=== PATIENT | male | born 1965 | race Caucasian/White ===

== ENCOUNTER 2022-06-02 08:43 | Emergency (ER) | payer OTHER ==
[~2022-06-02] VITALS: Ht 165.1 cm; Wt 81.6 kg
[2022-06-02] MEDS ORDERED: GLIPIZIDE XL10 MG PO (08:55)
[2022-06-02] MEDS ORDERED: METFORMIN HCL1000 M2 PO (08:56)
[2022-06-02] MEDS ORDERED: HUMULIN R100 UNIT/1 SUBCUTANEO (08:56)
== END 2022-06-02 10:06 | disposition home or self-care (01) ==
LOC: ER 08:43
DX: L84 Corns and callosities (principal); E11.9 Type 2 diabetes mellitus without complications; Z79.4 Long term (current) use of insulin; Z79.84 Long term (current) use of oral hypoglycemic drugs; Z91.013 Allergy to seafood

== ENCOUNTER 2022-08-12 14:53 | Emergency (ER) | payer OTHER ==
[~2022-08-12] VITALS: Ht 165.1 cm; Wt 81.6 kg
[~2022-08-12 14:53] MED LIST: GLIPIZIDE XL10 MG PO; HUMULIN R100 UNIT/1 SUBCUTANEO; METFORMIN HCL1000 M2 PO
== END 2022-08-12 17:55 | disposition home or self-care (01) ==
LOC: ER 14:53
DX: S46.819A Strain of other muscles, fascia and tendons at shoulder and upper arm level, unspecified arm, initial encounter (principal); X58.XXXA Exposure to other specified factors, initial encounter; Y93.9 Activity, unspecified; Y92.9 Unspecified place or not applicable; Y99.9 Unspecified external cause status; M62.838 Other muscle spasm; E11.9 Type 2 diabetes mellitus without complications; Z79.4 Long term (current) use of insulin; Z79.84 Long term (current) use of oral hypoglycemic drugs; I10 Essential (primary) hypertension; Z91.013 Allergy to seafood

== ENCOUNTER 2023-04-30 11:35 | Emergency (ER) | payer OTHER ==
[~2023-04-30] VITALS: Ht 165.1 cm; Wt 68.0 kg
[2023-04-30] MEDS ORDERED: DICLOFENAC SODI75 MG PO (13:24)
[2023-04-30] MEDS ORDERED: NORFLEX100MG PO (13:24)
== END 2023-04-30 13:32 | disposition home or self-care (01) ==
LOC: ER 11:35
DX: M54.2 Cervicalgia (principal); Z91.013 Allergy to seafood; E11.9 Type 2 diabetes mellitus without complications; Z79.4 Long term (current) use of insulin; I10 Essential (primary) hypertension; M62.838 Other muscle spasm

== ENCOUNTER 2024-06-01 14:37 | Emergency (ER) | payer OTHER ==
[~2024-06-01] VITALS: Ht 165.1 cm; Wt 74.8 kg
[~2024-06-01 14:37] MED LIST changes: +DICLOFENAC SODI75 MG PO; +NORFLEX100MG PO
[2024-06-01] MEDS ORDERED: KETOROLAC TROMETHAMINE 60 MG VIAL IM ONE ×2 (16:25→16:30)
[2024-06-01] MEDS ORDERED: ORPHENADRINE CITRATE 30 MG/ML AMPUL ONE (16:25)
[2024-06-01] MEDS ORDERED: ORPHENADRINE CITRATE 30 MG/ML AMPUL IM ONE (16:30)
[2024-06-01] MEDS ORDERED: NORFLEX100MG PO (19:14)
[2024-06-01] MEDS ORDERED: KETO10TA2 PO (19:14)
== END 2024-06-01 19:54 | disposition home or self-care (01) ==
LOC: ER 14:38
DX: M62.838 Other muscle spasm (principal); M54.2 Cervicalgia; E11.9 Type 2 diabetes mellitus without complications; Z79.84 Long term (current) use of oral hypoglycemic drugs; Z91.013 Allergy to seafood

== ENCOUNTER 2024-10-24 13:39 | Inpatient (IN) | payer OTHER ==
[~2024-10-24] VITALS: Ht 165.1 cm; Wt 72.6 kg
[~2024-10-24 13:39] MED LIST changes: +KETO10TA2 PO
--- NOTE | 2024-10-24 13:57 | NUR ---
SE RECIBE PACIENTE ALERTA Y ORIENTADO X3 REFIERE VENIR POR ORDEN DE MEDICO DE CLINICA DE CURACION DE HERIDAD PARA ADMISION AL HOSPOTAL POR ULCERA EN EL [facility].
--- NOTE | 2024-10-24 14:04 | NUR ---
SE CATHIE DXT A PACIENTE POR HX DE DIABTES Y PROTOCOLO DXT ES DE 439MG/DL, PACIENTE REFIERE NO HABERSRE TOMADO MASON DOSIS DE METFORMIN, NI INSULINA DE ESTA MANANA.
[2024-10-24] MEDS ORDERED: INSULIN REGULAR, HUMAN 1,000 UNIT/10 ML UNITS SUBCUTANEO ONE (14:45)
[2024-10-24] MEDS ORDERED: 0.9 % SODIUM CHLORIDE 1,000 ML IV SCH ×2 (14:45→17:30)
[2024-10-24] MEDS ORDERED: VANCOMYCIN HCL 1,000 MG VIAL IV ONE (14:45)
--- NOTE | 2024-10-24 15:20 | NUR ---
KIRK ORIENTA A PTE SOBRE TX MEDICO ORDENADO POR . REALIZA CATHIE DE MUESTRAS DE LAB DANNIE ORDEN MEDICA Y BAJO MEDIDAS ASEPTICAS. REALIZA CATHIE MUESTRAS DE CULTIVO Y SE ENVIAN A LABORATORIO. SE NOTIFICA ESTUDIO ORDENADO.
[2024-10-24 15:24] LABS: HEMATOCRIT 43.5 % (39.0-48.0); HEMOGLOBIN 14.9 g/dL (13-16.00); MEAN CELL VOLUME 93.2 fL (80.0-100.00); MEAN CORPUSCULAR HGB CONC 34.3 g/dl (32.0-36.0); PLATELET COUNT 348 K/uL (150-450); RED BLOOD COUNT 4.67 M/uL (4.00-6.00); RED CELL DISTRIBUTION WIDTH 13.3 % (11.5-14.5)
[2024-10-24 15:35] LABS: ERYTHROCYTE SEDIMENTATION RATE 59 mm/hr
[2024-10-24 16:23] LABS: ALBUMIN 2.9 gm/dL (3.4-5.0); BILIRUBIN TOTAL 0.39 mg/dL (0.3-1.2); C-REACTIVE PROTEIN 2.15 MG/DL (0.00-0.29); CALCIUM 9.6 mg/dL (8.5-10.1); CREATININE SERUM 0.79 mg/dL (0.70-1.30); GFR 100.05; GLOBULINA 4.8 G/DL (2.4-3.5); POTASSIUM 4.56 mEq/L (3.5-5.1); TOTAL PROTEIN 7.7 gm/dL (6.4-8.2)
[2024-10-24] MEDS ORDERED: ACETAMINOPHEN 500 MG GEL..CAP PO PRN (17:30)
[2024-10-24] MEDS ORDERED: CEFEPIME HCL 2,000 MG in 0.9 % SODIUM CHLORIDE 100 ML IV SCH (17:30)
[2024-10-24 18:11] VITALS: BP 164/92; O2SAT 99
[2024-10-24 22:35] VITALS: BP 153/83; O2SAT 96
[2024-10-25 00:10] VITALS: BP 124/77; O2SAT 98
[2024-10-25 07:13] LABS: PROTHROMBIN TIME 10.9 SECONDS (9.0-11.5)
[2024-10-25 08:00] VITALS: BP 159/93; O2SAT 95
[2024-10-25] MEDS ORDERED: LACTOBACILLUS ACIDOPHILUS 1 CAP CAP PO SCH (09:00)
[2024-10-25] MEDS ORDERED: VANCOMYCIN HCL 1,000 MG VIAL IV SCH (09:00)
[2024-10-25] MEDS ORDERED: FAMOTIDINE/PF 20 MG in 0.9 % SODIUM CHLORIDE 8 ML IV PUSH SCH (09:00)
[2024-10-25] MEDS ORDERED: ENOXAPARIN SODIUM 40 MG/0.4 ML SYRINGE SUBCUTANEO SCH (09:00)
[2024-10-25 16:00] VITALS: BP 144/80; O2SAT 97
[2024-10-25] MEDS ORDERED: INSULIN LISPRO 1,000 UNIT/10 ML UNITS SUBCUTANEO PRN (19:15)
[2024-10-25] MEDS ORDERED: DEXTROSE 50 % IN WATER 0.5 G/ML DISP.SYRIN IV PRN (19:15)
[2024-10-26 00:38] VITALS: BP 140/83; O2SAT 97
[2024-10-26 07:01] LABS: HEMATOCRIT 40.9 % (39.0-48.0); MEAN CELL VOLUME 93.4 fL (80.0-100.00); MEAN CORPUSCULAR HEMOGLOBIN 31.9 pg (27.00-32.0); MEAN CORPUSCULAR HGB CONC 34.2 g/dl (32.0-36.0); PLATELET COUNT 363 K/uL (150-450); RED BLOOD COUNT 4.37 M/uL (4.00-6.00); RED CELL DISTRIBUTION WIDTH 13.3 % (11.5-14.5)
[2024-10-26 07:45] LABS: ALBUMIN 2.7 gm/dL (3.4-5.0); BILIRUBIN TOTAL 0.46 mg/dL (0.3-1.2); CALCIUM 9.3 mg/dL (8.5-10.1); CREATININE SERUM 0.63 mg/dL (0.70-1.30); GFR 129.91; GLOBULINA 3.8 G/DL (2.4-3.5); MAGNESIUM 1.6 mg/dL (1.8-2.4); PHOSPHOROUS 3.3 mg/dL (2.5-4.9); POTASSIUM 4.22 mEq/L (3.5-5.1); TOTAL PROTEIN 6.5 gm/dL (6.4-8.2)
[2024-10-26 07:48] LABS: C-REACTIVE PROTEIN 1.19 MG/DL (0.00-0.29)
[2024-10-26 07:56] VITALS: BP 126/79; O2SAT 95
[2024-10-26 14:10] LABS: PROSTATIC SPECIFIC ANTIGEN 0.554 NG/ML (0.010-4.00); TSH 0.746 uIU/mL (0.358-3.74)
[2024-10-26 16:00] VITALS: BP 140/84; O2SAT 96
[2024-10-26 17:39] VITALS: BP 154/77; O2SAT 98
[2024-10-27] VITALS: BP 147/79; O2SAT 97
[2024-10-27 08:00] VITALS: BP 125/79; O2SAT 96
[2024-10-27] MEDS ORDERED: CEFAZOLIN SODIUM 2,000 MG in DEXTROSE 5 % IN WATER 100 ML IV SCH (09:00)
[2024-10-27 16:00] VITALS: BP 154/85; O2SAT 95
[2024-10-28 00:59] VITALS: BP 141/79; O2SAT 96
[2024-10-28 08:53] VITALS: BP 155/87; O2SAT 97
[2024-10-28 15:33] VITALS: BP 157/84; O2SAT 96
[2024-10-29 01:05] VITALS: BP 129/72; O2SAT 95
[2024-10-29 07:44] LABS: HEMATOCRIT 39.6 % (39.0-48.0); HEMOGLOBIN 13.9 g/dL (13-16.00); MEAN CORPUSCULAR HEMOGLOBIN 32.2 pg (27.00-32.0); PLATELET COUNT 355 K/uL (150-450); RED BLOOD COUNT 4.31 M/uL (4.00-6.00); RED CELL DISTRIBUTION WIDTH 13.3 % (11.5-14.5)
[2024-10-29 07:51] LABS: ALBUMIN 2.8 gm/dL (3.4-5.0); BILIRUBIN TOTAL 0.27 mg/dL (0.3-1.2); CALCIUM 9.3 mg/dL (8.5-10.1); CREATININE SERUM 0.62 mg/dL (0.70-1.30); GFR 132.33; GLOBULINA 3.9 G/DL (2.4-3.5); POTASSIUM 4.33 mEq/L (3.5-5.1); TOTAL PROTEIN 6.7 gm/dL (6.4-8.2)
[2024-10-29 08:29] VITALS: BP 138/76; O2SAT 98
[2024-10-29 16:27] VITALS: BP 150/83; O2SAT 93
[2024-10-30 00:08] VITALS: BP 147/80; O2SAT 95
[2024-10-30 08:00] VITALS: BP 148/86; O2SAT 97
[2024-10-30] MEDS ORDERED: LOSARTAN POTASSIUM 25 MG TABLET PO SCH (09:00)
[2024-10-30] MEDS ORDERED: SODIUM CHLORIDE 0.45 % 1,000 ML IV SCH (09:45)
[2024-10-30] MEDS ORDERED: RIVAROXABAN 10 MG TAB PO NR (11:00)
[2024-10-30 16:00] VITALS: BP 150/83; O2SAT 98
[2024-10-30] MEDS ORDERED: FAMOtidine 20 MG TABLET PO SCH (21:00)
[2024-10-31 00:14] VITALS: BP 137/79; O2SAT 100
[2024-10-31 08:00] VITALS: BP 139/75; O2SAT 97
[2024-10-31] MEDS ORDERED: LOSARTAN POTASSIUM 50 MG TABLET PO SCH (09:00)
[2024-10-31] MEDS ORDERED: RIVAROXABAN 10 MG TAB PO SCH (09:00)
[2024-10-31] MEDS ORDERED: XARELTO10 MG PO (12:39)
[2024-10-31] MEDS ORDERED: INTESTINEX680 M1 PO (12:40)
[2024-10-31] MEDS ORDERED: FAMOTIDINE20 MG PO (12:40)
[2024-10-31] MEDS ORDERED: METFORMIN HCL1000 M2 PO (12:40)
[2024-10-31] MEDS ORDERED: COZAAR50 MG PO (12:40)
[2024-10-31] MEDS ORDERED: HUMULIN R100 UNIT/1 SUBCUTANEO (12:41)
[2024-10-31] MEDS ORDERED: DUI500 PO (12:42)
== END 2024-10-31 16:54 | disposition home or self-care (01) | DRG 603 ==
LOC: ER 13:41 → SEC-K 18:24 → MEDI 18:45 → SURG 22:04
PROVIDERS: General Practice; Internal Medicine; Internal Medicine Infectious Disease; ADMIT Internal Medicine; ATTEND Internal Medicine
PROC: B54DZZZ Ultrasonography of Bilateral Lower Extremity Veins (ICD-10-PCS; principal; 2024-10-24)
PROC: B53CZZZ Magnetic Resonance Imaging (MRI) of Left Lower Extremity Veins (ICD-10-PCS; 2024-10-26)
DX: L03.116 Cellulitis of left lower limb (principal); I87.2 Venous insufficiency (chronic) (peripheral); L08.9 Local infection of the skin and subcutaneous tissue, unspecified; B95.61 Methicillin susceptible Staphylococcus aureus infection as the cause of diseases classified elsewhere; L97.529 Non-pressure chronic ulcer of other part of left foot with unspecified severity
CPT/HCPCS: 73725

== ENCOUNTER 2024-12-06 07:12 | Emergency (ER) | payer OTHER ==
[~2024-12-06] VITALS: Ht 165.1 cm; Wt 72.6 kg
[~2024-12-06 07:12] MED LIST changes: +COZAAR50 MG PO; +DUI500 PO; +FAMOTIDINE20 MG PO; +INTESTINEX680 M1 PO; +XARELTO10 MG PO
[2024-12-06] MEDS ORDERED: LOSARTAN POTASS50 MG (07:19)
[2024-12-06 07:21] VITALS: BP 160/80; O2SAT 98
== END 2024-12-06 08:45 | disposition home or self-care (01) ==
LOC: ER 07:15
DX: H53.9 Unspecified visual disturbance (principal); Z91.013 Allergy to seafood

== ENCOUNTER 2025-07-27 09:54 | Inpatient (IN) | payer OTHER ==
[~2025-07-27] VITALS: Ht 165.1 cm; Wt 78.9 kg
[~2025-07-27 09:54] MED LIST changes: +LOSARTAN POTASS50 MG
--- NOTE | 2025-07-27 10:32 | NUR ---
PTE CON REFERIDO DEL DR,LOEZ BRIDGES POR CELULITIS EN EL PIES DERECHJO Y ULCERA EN LOS DOS PIES. PTE PARA MANEJO DE ULCERRA Y PARA PROCESO DE ADMICION.SE LE CATHIE S/V Y SE UBICA EN FERNANDO.
--- NOTE | 2025-07-27 10:59 | NUR ---
SE ORIENTA A PACIENTE SOBRE TX MEDICO, REFIERE ENTENDER. SE REALIZAN MUESTRAS DE LABORATORIO BAJO MEDIDAS ASEPTICAS. SE ADMINISTRA IV'S DANNIE ORDEN MEDICA. SE COORDINA VENOUS DUPLEX Y ARTERIAL DUPLEX. PACIENTE MANEJADO POR . PENDIENTE RE-EVALUACION MEDICA.
[2025-07-27] MEDS ORDERED: 0.9 % SODIUM CHLORIDE 1,000 ML IV SCH ×2 (11:00→17:30)
[2025-07-27 11:41] LABS: BASO % 0.3 % (0.1-1.2); EOS # 0.01 (0.04-0.54); EOS % 0.1 % (0.7-7.0); LYMPH # 1.27 (1.18-3.74); LYMPH % 8.6 % (19.3-53.1); MEAN PLATELET VOLUME 10.80 fl (9.4-12.4); MONO # 1.05 (0.24-0.82); MONO % 7.1 % (4.7-12.5); NEUT # 12.23 (1.56-6.13); NEUT % 83.4 % (34.0-71.1); RED CELL DISTRIBUTION WIDTH 12.0 % (11.6-14.4)
[2025-07-27 11:51] LABS: ERYTHROCYTE SEDIMENTATION RATE 72 mm/hr (0-20)
[2025-07-27 12:50] LABS: ALT/SGPT 25.0 U/L (12-78); AST/SGOT 12.0 U/L (15-37); BILIRUBIN TOTAL 1.32 mg/dL (0.3-1.2); BUN CREA RATIO 15.0 (7.0-25.0); CREATININE SERUM 0.91 mg/dL (0.70-1.30); GFR 84.7; GLOBULINA 5.4 G/DL (2.4-3.5)
[2025-07-27 12:52] LABS: OSMOLALITY SERUM 280.0 MOSM/KG (275-295)
[2025-07-27 12:53] LABS: GLUCOSE FASTING 328.0 mg/dL (65-100)
[2025-07-27 13:04] LABS: URINE APPEARANCE Clear; URINE BILIRRUBIN Small (NEGATIVE); URINE BLOOD Negative; URINE COLOR Dark Yellow; URINE KETONE 15 (NEGATIVE); URINE LEUKOCYTE Trace; URINE NITRATE Negative; URINE UROBILINOGEN 1.0 E.U./dl
[2025-07-27 13:09] LABS: URINE BACTERIA 21.5 uL (0.0-1933); URINE CAST 5.27 uL (0.0-1.40); URINE EPITHELIAL CELLS 11.3 uL (0.0-38.8); URINE RBC 16.5 uL (0.0-20.8); URINE WBC 3.5 uL (0.0-23.2)
[2025-07-27] MEDS ORDERED: PIPERACILLIN/TAZOBACTAM SODIUM 3.375 GM in 0.9 % SODIUM CHLORIDE 100 ML IV SCH (13:18)
[2025-07-27 13:41] LABS: TYPE CELLS RENAL TUBULAR; URINE GLUCOSE >=1000 MG/DL (NEGATIVE); URINE PROTEIN 100 (NEGATIVE)
[2025-07-27] MEDS ORDERED: VANCOMYCIN HCL 1,000 MG VIAL IV SCH (17:26)
[2025-07-27] MEDS ORDERED: ENOXAPARIN SODIUM 40 MG/0.4 ML SYRINGE SUBCUTANEO SCH (17:28)
[2025-07-27] MEDS ORDERED: INSULIN LISPRO 1,000 UNIT/10 ML UNITS SUBCUTANEO PRN (17:30)
[2025-07-27] MEDS ORDERED: DEXTROSE 50 % IN WATER 0.5 G/ML VIAL IV PRN (17:30)
[2025-07-27] MEDS ORDERED: ACETAMINOPHEN 325 MG TABLET PO PRN (17:30)
[2025-07-27] MEDS ORDERED: GABAPENTIN 300 MG CAPSULE PO SCH (17:35)
[2025-07-27] MEDS ORDERED: VANCOMYCIN HCL 5 MG/ML REDILUIDO IV SCH ×2 (19:00)
[2025-07-27 19:19] LABS: INR 1.05
[2025-07-27 22:58] VITALS: BP 85/41
[2025-07-28 02:15] VITALS: BP 117/74; O2SAT 95
[2025-07-28 09:42] VITALS: BP 123/71
[2025-07-28 18:20] VITALS: BP 153/81; O2SAT 100
[2025-07-29 02:05] VITALS: BP 144/80; O2SAT 96
[2025-07-29 08:05] VITALS: BP 126/75
[2025-07-29] MEDS ORDERED: LACTOBACILLUS ACIDOPHILUS 1 CAP CAP PO SCH (17:00)
[2025-07-29 18:47] VITALS: BP 156/85; O2SAT 98
[2025-07-29] MEDS ORDERED: LINEZOLID IN DEXTROSE 5% 300 ML IV SCH (21:00)
[2025-07-30 02:07] VITALS: BP 125/79; O2SAT 95
[2025-07-30 08:00] VITALS: BP 120/80
[2025-07-30] MEDS ORDERED: CHLORHEXIDINE GLUCONATE 240 ML BOTTLE TOP SCH (09:00)
[2025-07-30 18:53] VITALS: BP 147/82
[2025-07-31 02:14] VITALS: BP 110/65; O2SAT 96
[2025-07-31 08:28] VITALS: BP 112/71; O2SAT 96
[2025-07-31 16:15] VITALS: BP 131/75; O2SAT 98
[2025-07-31] MEDS ORDERED: LINEZOLID 600 MG TABLET PO SCH (21:00)
[2025-08-01 03:08] VITALS: BP 139/87; O2SAT 94
[2025-08-01 09:34] VITALS: BP 133/80
== END 2025-08-01 14:11 | disposition home or self-care (01) | DRG 593 ==
LOC: ER 09:57 → MEDJ 17:55
PROVIDERS: General Practice; ADMIT Student in an Organized Health Care Education/Training Program; ATTEND Student in an Organized Health Care Education/Training Program
PROC: B54DZZZ Ultrasonography of Bilateral Lower Extremity Veins (ICD-10-PCS; principal; 2025-07-27)
PROC: BQ3LZZZ Magnetic Resonance Imaging (MRI) of Right Foot (ICD-10-PCS; 2025-07-29)
PROC: BQ3LYZZ Magnetic Resonance Imaging (MRI) of Right Foot using Other Contrast (ICD-10-PCS; 2025-07-29)
DX: L97.519 Non-pressure chronic ulcer of other part of right foot with unspecified severity (principal); L03.116 Cellulitis of left lower limb; H53.9 Unspecified visual disturbance; Z91.013 Allergy to seafood; L97.529 Non-pressure chronic ulcer of other part of left foot with unspecified severity; L84 Corns and callosities; B95.61 Methicillin susceptible Staphylococcus aureus infection as the cause of diseases classified elsewhere
CPT/HCPCS: 73725

== ENCOUNTER 2025-08-28 08:51 | Inpatient (IN) | payer OTHER ==
[~2025-08-28] VITALS: Ht 165.1 cm; Wt 72.6 kg
[2025-08-28] MEDS ORDERED: FAMOTIDINE/PF 20 MG/2 ML VIAL IV STA ×2 (09:35→12:12)
[2025-08-28] MEDS ORDERED: 0.9 % SODIUM CHLORIDE 1,000 ML IV STA ×3 (09:35→12:12)
[2025-08-28] MEDS ORDERED: CEFTRIAXONE SODIUM 1,000 MG VIAL IV ONE (09:45)
[2025-08-28] MEDS ORDERED: FAMOTIDINE/PF 20 MG/2 ML VIAL ONE (09:57)
[2025-08-28] MEDS ORDERED: CEFTRIAXONE SODIUM 1,000 MG VIAL ONE (09:58)
[2025-08-28 10:54] LABS: BASO % 0.4 % (0.1-1.2); EOS # 0.09 (0.04-0.54); EOS % 1.2 % (0.7-7.0); LYMPH # 1.90 (1.18-3.74); LYMPH % 24.9 % (19.3-53.1); MEAN PLATELET VOLUME 10.10 fl (9.4-12.4); MONO # 0.46 (0.24-0.82); MONO % 6.0 % (4.7-12.5); NEUT # 5.12 (1.56-6.13); NEUT % 67.1 % (34.0-71.1); RED CELL DISTRIBUTION WIDTH 12.2 % (11.6-14.4)
[2025-08-28 11:05] LABS: ERYTHROCYTE SEDIMENTATION RATE 31 mm/hr (0-20)
[2025-08-28 11:19] LABS: BUN CREA RATIO 15.0 (7.0-25.0); CREATININE SERUM 0.65 mg/dL (0.70-1.30); GFR 124.88
[2025-08-28 11:21] LABS: GLUCOSE FASTING 310.0 mg/dL (65-100); OSMOLALITY SERUM 281.0 MOSM/KG (275-295)
[2025-08-28 11:24] LABS: URINE APPEARANCE Clear; URINE BILIRRUBIN Negative (NEGATIVE); URINE BLOOD Negative; URINE COLOR Yellow; URINE KETONE Negative (NEGATIVE); URINE LEUKOCYTE Negative; URINE NITRATE Negative; URINE PROTEIN Trace (NEGATIVE); URINE UROBILINOGEN 1.0 E.U./dl
[2025-08-28 11:28] LABS: INR 1.01
[2025-08-28 11:31] LABS: URINE BACTERIA 275.8 uL (0.0-1933); URINE EPITHELIAL CELLS 6.4 uL (0.0-38.8); URINE RBC 3.2 uL (0.0-20.8); URINE WBC 3.2 uL (0.0-23.2)
[2025-08-28 11:34] LABS: URINE CAST 0.14 uL (0.0-1.40); URINE GLUCOSE >=1000 MG/DL (NEGATIVE)
[2025-08-28] MEDS ORDERED: VANCOMYCIN HCL 1,000 MG VIAL IV STA (12:12)
[2025-08-28] MEDS ORDERED: CEFTRIAXONE SODIUM 1,000 MG VIAL IV STA (12:12)
[2025-08-28] MEDS ORDERED: VANCOMYCIN HCL 1,000 MG VIAL ONE (12:51)
[2025-08-28] MEDS ORDERED: ACETAMINOPHEN 500 MG GEL..CAP PO PRN (14:45)
[2025-08-28] MEDS ORDERED: 0.9 % SODIUM CHLORIDE 1,000 ML IV SCH (14:45)
[2025-08-28] MEDS ORDERED: DEXTROSE 50 % IN WATER 0.5 G/ML DISP.SYRIN IV PRN (15:00)
[2025-08-28] MEDS ORDERED: ENALAPRILAT DIHYDRATE 1.25 MG/ML VIAL IV PRN (15:00)
[2025-08-28] MEDS ORDERED: INSULIN LISPRO 1,000 UNIT/10 ML UNITS SUBCUTANEO PRN (15:00)
[2025-08-28] MEDS ORDERED: PIPERACILLIN/TAZOBACTAM SODIUM 3.375 GM VIAL IV ONE (15:51)
[2025-08-28] MEDS ORDERED: INSULIN REGULAR, HUMAN 1,000 UNIT/10 ML UNITS ONE (16:28)
[2025-08-28 16:41] VITALS: BP 137/87
[2025-08-28] MEDS ORDERED: PIPERACILLIN/TAZOBACTAM SODIUM 3.375 GM in DEXTROSE 5 % IN WATER 100 ML IV SCH (18:00)
[2025-08-28] MEDS ORDERED: VANCOMYCIN HCL 5 MG/ML REDILUIDO IV SCH (21:00)
[2025-08-28] MEDS ORDERED: FAMOTIDINE/PF 20 MG/2 ML VIAL IV SCH (21:00)
[2025-08-28] MEDS ORDERED: VANCOMYCIN HCL 1,000 MG VIAL IV SCH (21:00)
[2025-08-29 01:30] VITALS: BP 124/73; O2SAT 98
[2025-08-29] MEDS ORDERED: ENOXAPARIN SODIUM 40 MG/0.4 ML SYRINGE SUBCUTANEO SCH (09:00)
[2025-08-29] MEDS ORDERED: VANCOMYCIN HCL 1,000 MG VIAL IV SCH (09:00)
[2025-08-29 10:03] VITALS: BP 127/77; O2SAT 99
[2025-08-29 18:25] VITALS: BP 146/83; O2SAT 98
[2025-08-30 03:28] VITALS: BP 125/75; O2SAT 96
[2025-08-30 09:23] VITALS: BP 160/85; O2SAT 97
[2025-08-30 20:45] VITALS: BP 145/81; O2SAT 97
[2025-08-31 03:19] VITALS: BP 145/76; O2SAT 97
[2025-08-31 06:17] LABS: BASO % 0.5 % (0.1-1.2); EOS # 0.17 (0.04-0.54); EOS % 2.7 % (0.7-7.0); LYMPH # 2.32 (1.18-3.74); LYMPH % 37.5 % (19.3-53.1); MEAN PLATELET VOLUME 10.20 fl (9.4-12.4); MONO # 0.49 (0.24-0.82); MONO % 7.9 % (4.7-12.5); NEUT # 3.16 (1.56-6.13); NEUT % 51.1 % (34.0-71.1); RED CELL DISTRIBUTION WIDTH 12.0 % (11.6-14.4)
[2025-08-31 06:54] LABS: ALT/SGPT 24.0 U/L (12-78); AST/SGOT 16.0 U/L (15-37); BILIRUBIN TOTAL 0.35 mg/dL (0.3-1.2); BUN CREA RATIO 14.0 (7.0-25.0); CREATININE SERUM 0.64 mg/dL (0.70-1.30); GFR 127.14; GLOBULINA 4.0 G/DL (2.4-3.5); OSMOLALITY SERUM 282.0 MOSM/KG (275-295)
[2025-08-31 06:55] LABS: GLUCOSE FASTING 229.0 mg/dL (65-100)
[2025-08-31 08:48] VITALS: BP 148/90; O2SAT 98
[2025-08-31 17:09] VITALS: BP 140/84
[2025-09-01 02:24] VITALS: BP 143/84; O2SAT 98
[2025-09-01 11:41] VITALS: BP 163/81; O2SAT 100
[2025-09-01 19:34] VITALS: BP 139/88
[2025-09-02 03:04] VITALS: BP 124/72; O2SAT 99
[2025-09-02 11:24] VITALS: BP 155/85; O2SAT 99
[2025-09-03 01:39] VITALS: BP 144/89; O2SAT 96
[2025-09-03] MEDS ORDERED: PIPERACILLIN/TAZOBACTAM SODIUM 3.375 GM VIAL IV ONE (05:07)
[2025-09-03 08:34] VITALS: BP 151/88; O2SAT 96
[2025-09-03] MEDS ORDERED: INSULIN LISPRO 1,000 UNIT/10 ML UNITS SUBCUTANEO SCH (11:00)
[2025-09-03 18:11] VITALS: BP 140/84; O2SAT 98
[2025-09-03] MEDS ORDERED: INSULIN GLARGINE,HUM.REC.ANLOG 1,000 UNITS/10 ML UNITS SUBCUTANEO SCH (21:00)
[2025-09-04 02:26] VITALS: BP 149/85; O2SAT 97
[2025-09-04] MEDS ORDERED: PIPERACILLIN/TAZOBACTAM SODIUM 3.375 GM VIAL IV ONE (08:18)
[2025-09-04 08:48] VITALS: BP 147/81; O2SAT 98
[2025-09-04 18:40] VITALS: BP 157/85; O2SAT 96
[2025-09-05] MEDS ORDERED: PIPERACILLIN/TAZOBACTAM SODIUM 3.375 GM VIAL IV SCH
[2025-09-05 02:55] VITALS: BP 129/79; O2SAT 97
[2025-09-05 10:16] VITALS: BP 153/90; O2SAT 98
[2025-09-05 18:36] VITALS: BP 164/89; O2SAT 97
[2025-09-06 02:40] VITALS: BP 139/85; O2SAT 98
[2025-09-06 10:47] VITALS: BP 145/87; O2SAT 98
== END 2025-09-06 15:18 | disposition home or self-care (01) | DRG 623 ==
LOC: ER 08:51 → MEDJ 15:29 → SEC-K 15:29 → MEDJ 17:43
PROVIDERS: General Practice; Internal Medicine Infectious Disease; ADMIT Student in an Organized Health Care Education/Training Program; ATTEND Student in an Organized Health Care Education/Training Program
PROC: BQ3LZZZ Magnetic Resonance Imaging (MRI) of Right Foot (ICD-10-PCS; 2025-08-28)
PROC: 0JBQ0ZZ Excision of Right Foot Subcutaneous Tissue and Fascia, Open Approach (ICD-10-PCS; principal; 2025-08-29)
PROC: B44HZZZ Ultrasonography of Bilateral Lower Extremity Arteries (ICD-10-PCS; 2025-08-29)
PROC: 02HV33Z Insertion of Infusion Device into Superior Vena Cava, Percutaneous Approach (ICD-10-PCS; 2025-09-04)
PROC: B548ZZA Ultrasonography of Superior Vena Cava, Guidance (ICD-10-PCS; 2025-09-04)
PROC: 0JBQ0ZZ Excision of Right Foot Subcutaneous Tissue and Fascia, Open Approach (ICD-10-PCS; 2025-09-05)
DX: E11.69 Type 2 diabetes mellitus with other specified complication (principal); L03.115 Cellulitis of right lower limb; M86.8X7 Other osteomyelitis, ankle and foot; L97.419 Non-pressure chronic ulcer of right heel and midfoot with unspecified severity; E11.51 Type 2 diabetes mellitus with diabetic peripheral angiopathy without gangrene; E11.621 Type 2 diabetes mellitus with foot ulcer; L97.519 Non-pressure chronic ulcer of other part of right foot with unspecified severity; E11.65 Type 2 diabetes mellitus with hyperglycemia; I10 Essential (primary) hypertension; Z79.84 Long term (current) use of oral hypoglycemic drugs; Z79.85 Long-term (current) use of injectable non-insulin antidiabetic drugs; B95.61 Methicillin susceptible Staphylococcus aureus infection as the cause of diseases classified elsewhere
CPT/HCPCS: 73221

== ENCOUNTER 2025-09-07 11:01 | Emergency (ER) | payer OTHER ==
[~2025-09-07] VITALS: Ht 165.1 cm; Wt 72.6 kg
== END 2025-09-07 15:56 | disposition home or self-care (01) ==
LOC: ER 11:01
DX: T82.898A Other specified complication of vascular prosthetic devices, implants and grafts, initial encounter (principal); Z91.013 Allergy to seafood; I10 Essential (primary) hypertension; E11.69 Type 2 diabetes mellitus with other specified complication; M86.8X8 Other osteomyelitis, other site; Z79.4 Long term (current) use of insulin

== ENCOUNTER → 2025-09-19 12:14 | Outpatient (CLI) | payer OTHER | END | disposition home or self-care (01) | LOC: LAB 12:14 | DX: M86.071 Acute hematogenous osteomyelitis, right ankle and foot (principal) ==

== ENCOUNTER 2025-10-23 08:08 | Outpatient (CLI) | payer OTHER | END 2025-10-23 08:11 | disposition home or self-care (01) | LOC: LAB 08:08 | DX: M86.171 Other acute osteomyelitis, right ankle and foot (principal) ==

== ENCOUNTER 2025-11-02 13:58 | Outpatient (CLI) | payer OTHER | END 2025-11-02 14:05 | disposition home or self-care (01) | LOC: LAB 13:58 | DX: M86.171 Other acute osteomyelitis, right ankle and foot (principal); E11.621 Type 2 diabetes mellitus with foot ulcer ==

== ENCOUNTER 2025-11-03 14:42 | Inpatient (IN) | payer OTHER ==
[~2025-11-03] VITALS: Ht 152.4 cm; Wt 72.6 kg
[2025-11-03 17:58] LABS: ERYTHROCYTE SEDIMENTATION RATE 65 mm/hr (0-20)
[2025-11-03 18:00] LABS: BASO % 0.5 % (0.1-1.2); EOS # 0.13 (0.04-0.54); EOS % 1.6 % (0.7-7.0); LYMPH # 2.25 (1.18-3.74); LYMPH % 28.6 % (19.3-53.1); MEAN PLATELET VOLUME 10.20 fl (9.4-12.4); MONO # 0.85 (0.24-0.82); MONO % 10.8 % (4.7-12.5); NEUT # 4.58 (1.56-6.13); NEUT % 58.1 % (34.0-71.1); RED CELL DISTRIBUTION WIDTH 12.3 % (11.6-14.4)
[2025-11-03 18:10] LABS: INR 0.98
[2025-11-03 18:15] LABS: ALT/SGPT 37.0 U/L (12-78); AST/SGOT 17.0 U/L (15-37); BILIRUBIN TOTAL 0.3 mg/dL (0.3-1.2); BUN CREA RATIO 18.0 (7.0-25.0); CREATININE SERUM 0.67 mg/dL (0.70-1.30); GFR 120.59; GLOBULINA 5.0 G/DL (2.4-3.5); GLUCOSE FASTING 132.0 mg/dL (65-100); OSMOLALITY SERUM 281.0 MOSM/KG (275-295)
[2025-11-03 18:33] LABS: URINE APPEARANCE Clear; URINE BILIRRUBIN Negative (NEGATIVE); URINE BLOOD Negative; URINE COLOR Yellow; URINE GLUCOSE Negative (NEGATIVE); URINE KETONE Trace (NEGATIVE); URINE LEUKOCYTE Small; URINE NITRATE Negative; URINE PROTEIN Trace (NEGATIVE); URINE UROBILINOGEN 0.2 E.U./dl
[2025-11-03 18:36] LABS: URINE BACTERIA 60.6 uL (0.0-1933); URINE CAST 4.24 uL (0.0-1.40); URINE EPITHELIAL CELLS 44.1 uL (0.0-38.8); URINE RBC 3.9 uL (0.0-20.8); URINE WBC 51.5 uL (0.0-23.2)
[2025-11-03 19:58] LABS: TYPE CELLS SQUAMOUS
[2025-11-03] MEDS ORDERED: VANCOMYCIN HCL 1,000 MG VIAL IV SCH (20:36)
[2025-11-03] MEDS ORDERED: ACETAMINOPHEN 500 MG GEL..CAP PO SCH (20:37)
[2025-11-03] MEDS ORDERED: CEFEPIME HCL 2,000 MG in 0.9 % SODIUM CHLORIDE 100 ML IV SCH (20:37)
[2025-11-03] MEDS ORDERED: FAMOTIDINE/PF 20 MG in 0.9 % SODIUM CHLORIDE 100 ML IV SCH (20:37)
[2025-11-03] MEDS ORDERED: DEXTROSE 50 % IN WATER 0.5 G/ML DISP.SYRIN IV PRN (20:45)
[2025-11-03] MEDS ORDERED: INSULIN LISPRO 1,000 UNIT/10 ML UNITS SUBCUTANEO PRN (20:45)
[2025-11-04] VITALS: BP 127/73; O2SAT 98
[2025-11-04 05:21] VITALS: BP 135/89; O2SAT 99
[2025-11-04 07:48] LABS: BASO % 0.4 % (0.1-1.2); EOS # 0.20 (0.04-0.54); EOS % 2.7 % (0.7-7.0); LYMPH # 2.62 (1.18-3.74); LYMPH % 35.0 % (19.3-53.1); MEAN PLATELET VOLUME 10.40 fl (9.4-12.4); MONO # 0.58 (0.24-0.82); MONO % 7.7 % (4.7-12.5); NEUT # 4.02 (1.56-6.13); NEUT % 53.7 % (34.0-71.1); RED CELL DISTRIBUTION WIDTH 12.1 % (11.6-14.4)
[2025-11-04 08:07] LABS: INR 0.99
[2025-11-04 08:16] LABS: BUN CREA RATIO 15.0 (7.0-25.0); CREATININE SERUM 0.55 mg/dL (0.70-1.30); GFR 151.44; GLUCOSE FASTING 158.0 mg/dL (65-100); OSMOLALITY SERUM 283.0 MOSM/KG (275-295)
[2025-11-04 09:09] LABS: ERYTHROCYTE SEDIMENTATION RATE 23 mm/hr (0-20)
[2025-11-04 09:45] VITALS: BP 101/67; O2SAT 98
[2025-11-04 09:47] VITALS: BP 142/90; O2SAT 98
[2025-11-04] MEDS ORDERED: CEFEPIME HCL 2,000 MG VIAL ONE (15:59)
[2025-11-04 20:08] VITALS: BP 109/73
[2025-11-05 03:08] VITALS: BP 117/76; O2SAT 96
[2025-11-05 19:33] VITALS: BP 150/80; O2SAT 97
[2025-11-05] MEDS ORDERED: CEFEPIME HCL 2,000 MG in 0.9 % SODIUM CHLORIDE 100 ML IV SCH (21:00)
[2025-11-06 03:21] VITALS: BP 121/73; O2SAT 99
[2025-11-06] MEDS ORDERED: INSULIN LISPRO 1,000 UNIT/10 ML UNITS SUBCUTANEO SCH (07:15)
[2025-11-06] MEDS ORDERED: INSULIN GLARGINE,HUM.REC.ANLOG 1,000 UNITS/10 ML UNITS SUBCUTANEO SCH ×2 (09:00→21:00)
[2025-11-06] MEDS ORDERED: ENOXAPARIN SODIUM 40 MG/0.4 ML SYRINGE SUBCUTANEO SCH (09:00)
[2025-11-06 10:00] VITALS: BP 132/80; BP 155/84; O2SAT 94; O2SAT 96
[2025-11-06] MEDS ORDERED: POVIDONE-IODINE 118 ML BOTT TOP ONE (11:28)
[2025-11-06] MEDS ORDERED: LIDOCAINE HCL 1%/EPINEPHRINE 20ML VIAL IJ ONE (11:28)
[2025-11-06] MEDS ORDERED: CEFAZOLIN SODIUM 1,000 MG VIAL ONE (11:28)
[2025-11-06] MEDS ORDERED: BUPIVACAINE HCL/MPF 0.5% 30ML VIAL ONE (11:28)
[2025-11-06 18:27] VITALS: BP 174/91
[2025-11-06] MEDS ORDERED: INSULIN GLARGINE,HUM.REC.ANLOG 1,000 UNITS/10 ML UNITS SUBCUTANEO STA (22:09)
[2025-11-07 02:42] VITALS: BP 137/79; O2SAT 98
[2025-11-07 07:10] LABS: BASO % 0.3 % (0.1-1.2); EOS # 0.12 (0.04-0.54); EOS % 1.6 % (0.7-7.0); LYMPH # 1.64 (1.18-3.74); LYMPH % 21.7 % (19.3-53.1); MEAN PLATELET VOLUME 9.40 fl (9.4-12.4); MONO # 0.67 (0.24-0.82); MONO % 8.9 % (4.7-12.5); NEUT # 5.10 (1.56-6.13); NEUT % 67.2 % (34.0-71.1); RED CELL DISTRIBUTION WIDTH 12.0 % (11.6-14.4)
[2025-11-07 08:26] LABS: ALT/SGPT 19.0 U/L (12-78); AST/SGOT 11.0 U/L (15-37); BILIRUBIN TOTAL 0.33 mg/dL (0.3-1.2); BUN CREA RATIO 16.0 (7.0-25.0); CREATININE SERUM 0.56 mg/dL (0.70-1.30); GFR 148.32; GLOBULINA 4.4 G/DL (2.4-3.5); GLUCOSE FASTING 122.0 mg/dL (65-100); OSMOLALITY SERUM 278.0 MOSM/KG (275-295)
[2025-11-07] MEDS ORDERED: INSULIN GLARGINE,HUM.REC.ANLOG 1,000 UNITS/10 ML UNITS SUBCUTANEO SCH ×2 (09:00→21:00)
[2025-11-07 10:08] VITALS: BP 150/80; O2SAT 97
[2025-11-07] MEDS ORDERED: INSULIN LISPRO 1,000 UNIT/10 ML UNITS SUBCUTANEO SCH (12:00)
[2025-11-07] MEDS ORDERED: CEFAZOLIN SODIUM 1,000 MG VIAL IV SCH (17:00)
[2025-11-07 19:03] VITALS: BP 136/91
[2025-11-08 01:38] VITALS: BP 115/73; O2SAT 97
[2025-11-08 09:48] VITALS: BP 159/85; O2SAT 99
[2025-11-08 19:07] VITALS: BP 160/89
[2025-11-09 01:30] VITALS: BP 160/82; O2SAT 97
[2025-11-09 10:36] VITALS: BP 171/84; O2SAT 98
[2025-11-09] MEDS ORDERED: LOSARTAN POTASSIUM 50 MG TABLET PO NR (11:15)
[2025-11-09] MEDS ORDERED: INSULIN LISPRO 1,000 UNIT/10 ML UNITS SUBCUTANEO SCH (17:00)
[2025-11-09 18:27] VITALS: BP 148/85; O2SAT 96
[2025-11-09] MEDS ORDERED: INSULIN GLARGINE,HUM.REC.ANLOG 1,000 UNITS/10 ML UNITS SUBCUTANEO SCH (21:00)
[2025-11-10 02:34] VITALS: BP 146/83; O2SAT 97
[2025-11-10] MEDS ORDERED: LOSARTAN POTASSIUM 50 MG TABLET PO SCH (09:00)
[2025-11-10 09:43] VITALS: BP 134/86; O2SAT 97
== END 2025-11-10 15:15 | disposition home or self-care (01) | DRG 256 ==
LOC: ER 14:42 → MEDI 20:43 → MEDJ 20:43
PROVIDERS: Internal Medicine Endocrinology, Diabetes & Metabolism; Physician Assistant Medical; Student in an Organized Health Care Education/Training Program; ADMIT Student in an Organized Health Care Education/Training Program; ATTEND Student in an Organized Health Care Education/Training Program
PROC: BQ3DZZZ Magnetic Resonance Imaging (MRI) of Right Lower Leg (ICD-10-PCS; 2025-11-05)
PROC: 0JBQ0ZZ Excision of Right Foot Subcutaneous Tissue and Fascia, Open Approach (ICD-10-PCS; 2025-11-06)
PROC: 0Y6X0Z1 Detachment at Right 5th Toe, High, Open Approach (ICD-10-PCS; principal; 2025-11-06 11:15)
DX: E11.52 Type 2 diabetes mellitus with diabetic peripheral angiopathy with gangrene (principal); L02.611 Cutaneous abscess of right foot; L03.115 Cellulitis of right lower limb; M86.271 Subacute osteomyelitis, right ankle and foot; L97.518 Non-pressure chronic ulcer of other part of right foot with other specified severity; E11.621 Type 2 diabetes mellitus with foot ulcer; E11.65 Type 2 diabetes mellitus with hyperglycemia; Z60.0 Problems of adjustment to life-cycle transitions; Z79.84 Long term (current) use of oral hypoglycemic drugs; Z79.4 Long term (current) use of insulin; B95.61 Methicillin susceptible Staphylococcus aureus infection as the cause of diseases classified elsewhere
CPT/HCPCS: 73221